=== PATIENT | female | born 2000 | race Caucasian/White ===

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

== ENCOUNTER 2023-10-08 15:54 | Emergency (ER) | payer OTHER ==
[2023-10-08 16:03] VITALS: BP 148/96; PULSE 109; RESP 18; TEMP 98; BMI 27.3
[2023-10-08] MEDS ORDERED: ACETAMINOPHEN 500 MG TABLET (FP) ONE (17:10)
[2023-10-08] MEDS: ACETAMINOPHEN 500 MG TABLET (FP) PO ONE (17:10)
== END 2023-10-08 18:16 | disposition home or self-care (01) ==
LOC: JERFT 15:54
DX: S09.90XA Unspecified injury of head, initial encounter (principal); M79.621 Pain in right upper arm; M25.511 Pain in right shoulder; M54.2 Cervicalgia; V43.52XA Car driver injured in collision with other type car in traffic accident, initial encounter; Y92.410 Unspecified street and highway as the place of occurrence of the external cause
CPT/HCPCS: 99283-25